=== PATIENT | female | born 1940 | race Caucasian/White ===

== ENCOUNTER 2018-04-11 01:21 | Emergency (ER) | payer MEDICARE, BC, SELFPAY ==
[2018-04-11 01:22] VITALS: BP 145/90; PULSE 115; RESP 20; TEMP 36.3; O2SAT 89; BMI 24.5
--- NOTE | 2018-04-11 01:47 | RAD_ITS ---
STUDY: X-RAY CHEST REASON FOR EXAM: Female, 77 years old. Hemoptysis with nosebleed. TECHNIQUE: Single AP portable view of the chest. COMPARISON: Prior comparison studies are not available for review at this time. FINDINGS: Cardiac monitoring leads are present. The lungs are hyperexpanded. Increased lucency in the upper lobes may be the result of COPD. There is interstitial thickening present in both lungs. There is pleural fibrotic thickening of the pulmonary lung apices. There is borderline cardiomegaly. There appears to be a large hiatal hernia within the middle mediastinum. Normal visualized pulmonary arteries. There is atherosclerotic calcification of the aortic arch with tortuosity. There is demineralization of the osseous structures. Normal visualized ribs, clavicles, and shoulders. There is no demonstrated abnormality of the visualized soft tissue structures of the upper abdomen. RAD/Chest 1 View (Portable) IMPRESSION: 1. Bilateral interstitial thickening could be acute or chronic. Differential considerations include sequela of viral infection, atypical mycobacterial infection or mycoplasma pneumonitis. 2. Hiatal hernia. Electronically Signed: Pattie Bashir MD at 2:51 EDT , Service support ,
--- NOTE | 2018-04-11 01:54 | ED.DCSUM_ITS ---
- ER Visit Summary Date of Service: 04/11/18 Chief Complaint: Bilateral nosebleed right greater than left History of Present Illness: The patient is a 77 F 3 of COPD, pulmonary hypertension on 8 L nasal cannula O2 at home. She denies being on any type of blood thinner other than a baby aspirin a day. She was at home about 2 hours ago around 12:30 AM she coughed up a small amount of blood and had nosebleed first on the right than the left. Denies any trauma. She typically does not get nosebleeds. She denies any chest pain. No worsening of her chronic shortness of breath. No DVT or PE history. Physical Examination: Older female bleeding from both nares much worse from the right. Some clots but mainly thin blood. Also blood in her posterior pharynx. Neck nontender. Lungs coarse breath sounds but currently no rales or rhonchi. Heart tachycardic 115 no murmur. Chest wall nontender. Abdomen soft nontender. She is moving all 4 extremities. No edema. Calves nontender. No cords. Neurologically she is awake and alert moving all 4 extremities. No focal motor deficits. Test Results: CBC is unremarkable with a hemoglobin of 13 and a platelet count of 347. Chemistries are unremarkable with a normal gap and creatinine. INR is normal at 1.1. A chest x-ray was obtained and there is no signs of acute pulmonary hemorrhage. She does have chronic changes consistent with her COPD. Also a hiatal hernia. Emergency Department Course and Treatment: Patient is obvious anterior nosebleed on the right. Blood in the naris on the left. We had her blow her nose to remove the clots. Afrin-soaked cotton balls were placed in both sides of her nose. The right one was removed when it was soaked with blood and the second was placed and the bleeding is starting to slow down. Multiple Duane-Synephrine soaked cotton balls were interchanged in both nares. The bleeding was significantly slowed down. An anterior nasal tampon was placed in the left which is doing well. An anterior nasal pack is been placed in the right. Along with [place] solution. Currently the bleeding is much slower and she is doing much better. Treatment Plan: Patient has been watched in the ER overnight. 05 20 her bleeding is completely resolved she has been resting comfortably. She has bilateral anterior nasal packs in. In the morning I will speak to the on-call ENT physician and have her seen in our office. Disposition: Discharge the ENT office in the morning for formal evaluation and definitive treatment. Due to her having bilateral anterior packs in she will be placed on amoxicillin 3 times daily for 3 days. Impression: Acute anterior nosebleed bilateral nares. Bilateral anterior nasal packs by ER History of pulmonary hypertension and COPD on 8 L of oxygen at home. This note was generated with [employer] dictation software. It may contain incorrect words, spelling, and punctuation that were not noted in review of the chart prior to signing ED Disposition - Plan for ED Patient: Chief Complaint: Nosebleed Referrals: Bakari Bender MD [STAFF PHYSICIAN] -
[2018-04-11 02:04] LABS: Hematocrit 40.5 % (37-47); Mean Corp Hgb Conc 32.1 g/gl (32-36); Mean Corpuscular Hgb 28.9 pg (27.0-32.0); Mean Platelet Vol. 10.7 fl (6.2-12.0); Platelet Count 347 K/mm3 (150-450); RBC Distribution Width CV 15.6 % (11.6-14.6); RBC Distribution Width SD 51.2 fl (35.1-43.9)
[2018-04-11] MEDS: Oxymetazoline 0.05% 1 SPRAY SPRAY.BTL 2 SPRAY NASAL (02:10)
[2018-04-11 02:14] LABS: Scan Indicated on CBC? Y/N NO
[2018-04-11 02:18] LABS: Anion Gap 9 (5-15); BUN 12 mg/dL (7-18); BUN/Creat Ratio 12.7 RATIO (10-20); Calcium,Total 9.4 mg/dL (8.5-10.1); Chloride 105 mmol/L (98-107); Creatinine, Serum 0.95 mg/dL (0.55-1.02); EST Glomerular Filtration Rate 61 mL/min (>60); Est Glom Filt Rate - Afr Amer 74 mL/min (>60); Glucose 111 mg/dL (74-106); Potassium 3.6 mmol/L (3.5-5.1); Sodium Level 141 mmol/L (136-145)
[2018-04-11] MEDS: Mixture 30 ML Bottle TOPICAL (02:20)
[2018-04-11 02:21] LABS: International Normalized Ratio 1.1; Prothrombin Time (Protime)PT. 14.2 SECONDS (11.7-14.9)
[2018-04-11 03:21] VITALS: BP 126/74; PULSE 118; RESP 24; O2SAT 98
[2018-04-11 04:39] VITALS: BP 102/66; PULSE 115; RESP 19; O2SAT 92
--- NOTE | 2018-04-11 04:45 | ED.RN ---
LARGE HALF DOLLAR SIZE BLOOD CLOT REMOVED FROM THE BACK OF THE PT MOUTH
--- NOTE | 2018-04-11 05:23 | ED.DEP ---
ED Disposition - Plan for ED Patient: Disposition: Home or Assisted Living Chief Complaint: Nosebleed Instructions: Nosebleed Prescriptions: Amoxicillin 250 mg PO TID #9 cap Referrals: Peng Crespo MD [STAFF PHYSICIAN] - As soon as possible Additional Instructions: Hold aspirin until nasal packs are removed. I would discuss with your primary care physician if you need to be on aspirin at all. The aspirin along with your home oxygen therapy will greatly increase her risk of recurrent nosebleeds. Nasal packing should be removed in 3 days. Amoxicillin 1 pill 3 times a day for 3 days. If recurrent nosebleed at home hold direct pressure if unable to stop return to the ER.
[2018-04-11 06:03] VITALS: BP 91/59; PULSE 114; RESP 25; O2SAT 97
[2018-04-11 07:54] VITALS: BP 99/63; PULSE 105; RESP 24; O2SAT 97
== END 2018-04-11 07:55 | disposition home or self-care (01) ==
PROVIDERS: Emergency Provider Emergency Medicine; Family Provider Internal Medicine; PCP Internal Medicine
DX: R04.0 Epistaxis (principal); I27.20 Pulmonary hypertension, unspecified; J44.9 Chronic obstructive pulmonary disease, unspecified; K44.9 Diaphragmatic hernia without obstruction or gangrene; Z99.81 Dependence on supplemental oxygen; Z85.3 Personal history of malignant neoplasm of breast
CPT/HCPCS: 71045; 80048; 85027; 85610; 99284; A4216

== ENCOUNTER 2018-05-17 03:40 | Inpatient (IN) | payer MEDICARE, BC, SELFPAY ==
[2018-05-17] VITALS (23 sets, daily range): BP systolic 53–165; BP diastolic 21–91; PULSE 87–122; RESP 13–33; TEMP 36.2–36.8; O2SAT 86–100; BMI 23.3; BMI 23.1; BMI 61.3
--- NOTE | 2018-05-17 04:03 | ED.RN ---
RN CALLED FOR EKG, PULLED OLD EKG'S FOR
--- NOTE | 2018-05-17 04:04 | RAD_ITS ---
STUDY: X-RAY CHEST REASON FOR EXAM: Female, 77 years old. Shortness of breath TECHNIQUE: Single frontal view of the chest. COMPARISON: April 11, 2018. FINDINGS: EKG leads artifacts. O2 apparatus artifact. There is hyperinflation of the lungs consistent with chronic obstructive lung disease (COPD). Again noted increased lung markings more so in the lower lungs. Pleural thickening is seen. No definitive pneumothorax or pleural effusion. There is borderline cardiomegaly. Large hiatal hernia. Normal visualized pulmonary arteries. Aortic calcifications. There are diffuse degenerative changes of the visualized thoracic spine. Normal visualized ribs, clavicles, and shoulders. There is no demonstrated abnormality of the visualized soft tissue structures of the upper abdomen. RAD/Chest 1 View (Portable) IMPRESSION: Interstitial increased markings are again noted. Compared to prior study no significant interval change. This could be acute versus chronic. Acute infectious process cannot be totally excluded. Correlation is recommended. Hiatal hernia. Electronically Signed: Chalo Zheng, at 4:43 EDT Tel , Service support ,
--- NOTE | 2018-05-17 04:06 | CT_ITS ---
STUDY: CT ABDOMEN AND PELVIS WITH CONTRAST REASON FOR EXAM: Female, 77 years old. Abdominal pain RADIATION DOSAGE (If Supplied By Facility): CTDIvol = ( 19.63 ) mGy, DLP = ( 824.57 ) mGycm TECHNIQUE: Transaxial images were obtained from the dome of the diaphragm to the symphysis pubis with oral contrast. 100ML ml of Isovue 300 contrast was administered. Sagittal and coronal images were reconstructed. Individualized dose optimization techniques were used for this CT. COMPARISON: None. FINDINGS: Extensive emphysematous changes are present. 6 mm lingular nodule. Pleural-based thickening is present. 8 mm left lower lobe pleural-based nodularity. Chronic fibrosis. Small bilateral pleural effusions. Subcentimeter short axis hilar lymph nodes. Partial visualization 1.5 cm short axis subcarinal lymph node. Small pericardial effusion. Right atrial enlargement. Surgical clips within the right breast. There is decreased attenuation of the liver consistent with steatosis. Multiple low-attenuation structures are noted within the liver. Largest measures 2.8 cm appears septated. Normal gallbladder and extrahepatic biliary system. Normal spleen. Normal pancreas. Normal bilateral adrenal glands. Normal right kidney. Normal left kidney. There is a large hiatal hernia composed mostly of the fundus of the stomach. Gastric wall thickening. Small bowel dilatation. There are multiple colonic diverticula consistent with diverticulosis. The appendix is visualized and appears normal. There is diffuse atherosclerotic calcification of the abdominal aorta, without a demonstrated aneurysm. Normal inferior vena cava. Normal retroperitoneum. Normal urinary bladder. Small amount of fluid within the pelvis. There is a small umbilical hernia containing fat. There are diffuse degenerative changes of the visualized lumbar spine. CT/Abdomen/Pelvis W IV Cont ONLY IMPRESSION: Dilated small bowel with distal decompression concerning for small bowel obstruction. The oral contrast does not appear to pass through at time of examination. Recommend follow-up KUB to ensure passage of oral contrast. Hepatic steatosis. Multiple low-attenuation structures within the liver. Incompletely characterized on this single phase study. Could represent cysts and/or hemangiomas. Further evaluation could be made with ultrasound. Small pericardial effusion. Large hiatal hernia. Gastric wall thickening. Correlate for gastritis, ulcer or mass. Small bilateral pleural effusions. Partial visualization of pulmonary nodules and subcarinal enlarged lymph node. Recommend dedicated CT scan of the chest to further evaluate on a nonemergent basis. Right atrial enlargement. Small amount of nonspecific fluid within the pelvis. Electronically Signed: Chalo Zheng, at 6:10 EDT Tel , Service support ,
--- NOTE | 2018-05-17 04:08 | ED.DCSUM_ITS ---
- ER Visit Summary Date of Service: 05/17/18 Chief Complaint: Shortness of breath, abdominal pain History of Present Illness: The patient is a 77 F presenting with abdominal pain which started yesterday afternoon. She states she has had left lower quadrant abdominal pain associated with nausea. She denies vomiting or diarrhea. She is complains of increasing shortness of breath which started around midnight. She has had a productive cough. She denies fever. Denies chest pain. She has a history of pulmonary hypertension, pulmonary fibrosis, emphysema. She is on home O2 8 L. Physical Examination: Vitals are stable. Patient is afebrile. Alert no acute distress. HEENT exam is unremarkable. Neck is supple. Lungs are expiratory wheezing bilaterally. Heart is regular rate and rhythm. Abdomen is soft left lower quadrant tenderness with no rebound or guarding Extremities are unremarkable. Skin is warm and dry. No focal neurologic deficit. Remainder of exam is unremarkable. Emergency Department Course and Treatment: Patient was given albuterol, Atrovent. EKG is sinus tachycardia rate of 112 with inferior T-wave inversions , similar to previous. CBC shows white count 12.7. Chemistries show glucose 150, creatinine 1.10. Troponin is negative. Lactic acid is 2.3. Patient was given Zofran IV. Chest x-ray shows interstitial increased markings again noted. Compared to prior study no significant interval change. CT abdomen pelvis shows dilated small bowel with distal decompression concerning for small bowel obstruction. Patient is feeling improved on reevaluation. She has had no vomiting in the emergency department. Discussed with the hospitalist for admission. Disposition: Admission Impression: Small bowel obstruction, pulmonary fibrosis This note was generated with [employer] dictation software. It may contain incorrect words, spelling, and punctuation that were not noted in review of the chart prior to signing ED Disposition - Plan for ED Patient: Chief Complaint: Shortness of Breath Referrals: Thomas Baumann MD [Primary Care Provider] -
[2018-05-17 04:14] LABS: Absolute Lymphocyte Count 1.04 X10^3/ul (0.83-4.51); Absolute Neutrophil Count 10.9 X10^3/uL (2.0-7.7); Basophil% 0.8 % (0-1); Eosinophil# 0.26 X10^3/uL; Hematocrit 42.1 % (37-47); Hemoglobin 13.2 g/dl (12.0-15.0); Lymphocyte # 1.04 X10^3/ul (4.0); Lymphocyte % 8.2 % (19-41); Mean Corp Hgb Conc 31.4 g/gl (32-36); Mean Corpuscular Hgb 27.8 pg (27.0-32.0); Mean Corpuscular Volume 88.8 fL (81-99); Mean Platelet Vol. 11.3 fl (6.2-12.0); Monocyte# 0.44 X10^3/uL; Monocyte% 3.5 % (0-10); Neutrophil # 10.87 X10^3/uL (2.7-7.7); Neutrophil % 85.3 % (47-70); POSITIVE COUNT NO; POSITIVE DIFFERENTIAL NO; POSITIVE MORPHOLOGY NO; Platelet Count 413 K/mm3 (150-450); RBC Distribution Width CV 15.4 % (11.6-14.6); RBC Distribution Width SD 49.8 fl (35.1-43.9); Red Blood Count 4.74 M/mm3 (4.2-5.4); White Blood Count 12.7 K/mm3 (4.4-11.0)
[2018-05-17] MEDS: Albuterol 2.5 MG/3 ML VIAL.NEB. INHALATION ×3 (04:25)
[2018-05-17] MEDS: Ipratropium/Albuterol Sulfate 3 ML AMPUL.NEB INHALATION (04:25)
[2018-05-17 04:29] LABS: ALB/GLOB Ratio 0.9 RATIO (0.9-2.4); AST(SGOT) 29 U/L (15-37); Alanine Aminotransfer ALT/SGPT 35 U/L (13-56); Albumin, Serum 3.6 g/dL (3.2-5.0); Alkaline Phosphatase 103 U/L (45-117); Anion Gap 12 (5-15); BUN 10 mg/dL (7-18); BUN/Creat Ratio 9.1 RATIO (10-20); Chloride 104 mmol/L (98-107); EST Glomerular Filtration Rate 51 mL/min (>60); Est Glom Filt Rate - Afr Amer 62 mL/min (>60); Estimated Creatinine Clearance 37.57 ml/min; Globulin 4.1 g/dL (2.2-4.2); Glucose 150 mg/dL (74-106); Lipase 99 U/L (73-393); Potassium 3.7 mmol/L (3.5-5.1); Protein, Total 7.7 g/dL (6.4-8.2); Sodium Level 141 mmol/L (136-145)
[2018-05-17 04:35] LABS: Lactic Acid 2.3 mmol/L (0.4-2.0)
[2018-05-17] MEDS: Ondansetron 4 MG/2 ML Vial IV ×2 (04:41→09:48)
--- NOTE | 2018-05-17 04:43 | ED.RN ---
lab resulted lactic acid 2.3, physician notified
--- NOTE | 2018-05-17 07:20 | ED.RN ---
PT BP REMAINS LOW. FLUID BOLUS UP AND INFUSING. PT STATES HER BP DOES THIS. PT ALERT. NO S/S
[2018-05-17 08:12] LABS: Reflex Lactate? Y
[2018-05-17] MEDS: 0.9% Normal Saline 1,000 ML 150 ML IV (08:30)
[2018-05-17] MEDS: 0.9% Normal Saline 1,000 ML 999 ML IV (08:30)
--- NOTE | 2018-05-17 09:39 | PCM.HP.STD ---
Problem List (1) Abdominal pain Status: Acute History of Present Illness Date of Admission: 05/17/18 Chief Complaint: abdominal pain The patient is a 77 year old F with past medical history of chronic hypoxic respiratory failure due to interstitial lung disease and COPD and history of breast cancer. She is admitted by the ED on 05/17/2018 with a complaint of abdominal pain of one day duration. Abdominal pain was initially in the left lower quadrant and became generalized. She had associated nausea and vomiting. She was passing gas and also had a soft bowel movement overnight. She described pain as cramping with no aggravating or relieving factors. She had no assisted fever but admitted to chills, she denied any cough or chest pain, any shortness of breath. Review of systems otherwise negative. Temperature was 97.2 Fahrenheit, ID of 100, RR Of 18 and saturation of 97% on 8 L of oxygen which is her baseline. Labs done showed sodium of 141, potassium 3.7, creatinine of 1.1 and lactic acid was elevated at 5. Liver function tests were pretty much unremarkable. CBC was significant for white cell count of 12.7. Chest x-ray showed increased interstitial markings per ED note and CT abdomen and pelvis. He now showed dilated small bowel with distal decompression concerning for small bowel obstruction. Patient is being admitted to be managed for small bowel obstruction and lactic acidosis as well as hypotension likely due to dehydration. [] Past Medical History Allergies aspirin [ASA] Allergy (Verified 04/11/18 01:25) Unknown Sulfa (Sulfonamide Antibiotics) Allergy (Verified 04/11/18 01:25) Unknown Home Medications: Ambulatory Orders Medication Instructions Recorded Folic Acid 1 mg PO DAILY@0800 10/29/14 Pantoprazole Sodium [Protonix] 40 mg PO DAILY 10/29/14 Sertraline HCl [Zoloft] 50 mg PO DAILY 10/29/14 Simvastatin [Zocor] 20 mg PO QHS 10/29/14 Treprostinil/Nebulizer/Accesor 1.74 mg IH Q4H 04/11/18 [Tyvaso Inhalation Starter Kit] Aspirin [Aspirin, Baby] 81 mg PO DAILY@0800 05/17/18 Hydroxyzine HCl 25 mg PO Q8H PRN PRN 05/17/18 Levothyroxine Sodium [Synthroid] 50 mcg PO SUTUWETHFRSA 05/17/18 Levothyroxine [Synthroid] 100 mcg PO MO 05/17/18 Metoprolol Succinate 12.5 mg PO DAILY 05/17/18 Multivit-Min/FA/Lycopen/Lutein 1 each PO DAILY 05/17/18 [Centrum Silver Tablet] Tiotropium [place] [Spiriva] 18 mcg IH DAILY 05/17/18 Surgical History: - - right breast surgery, hysterectomy, tonsillectomy Psychiatric History: No pertinent psych hx Lives: With Family Smoking Status: Former smoker Alcohol: Occasional Drugs: None - *Family History Maternal History Items: Heart Disease, Hypertension Review of Systems Constitutional: Reports: Chills, Malaise. Denies: Anorexia, Fever, Weakness Eyes: Denies: Blurred vision HEENT: Denies: Head Aches, Sinus Congestion, Sinus Drainage Cardiovascular: Denies: Chest Pain, Chest Pressure, Edema, Heaviness, Light Headedness, Palpitations Respiratory: Denies: Cough, Shortness of Breath, Shortness of breath upon exertion, Sputum production, Wheezing Gastrointestinal: Reports: Abdominal Pain, Nausea, Vomiting. Denies: Diarrhea Genitourinary: Denies: Dysuria Gynecological: Denies: Breast symptoms Musculoskeletal: Denies: Joint Pain, Joint Tenderness Skin: Denies: Rash, Wounds Neurological: Denies: Numbness, Tingling, Focal weakness VTE Information - Inpt Only VTE Present on Admission: No VTE Mechan Device Prophylaxis: None VTE Pharm Prophylaxis ordered?: Yes - Physical Exam General: Alert, Oriented x3, Cooperative, No apparent distress HEENT: Atraumatic, PERRLA, EOMI, Normocephalic Oral: Dry Mucosa Neck: Supple, No JVD, Negative Carotid Bruits Lungs: - - Has coarse crackles in mid and lower lung muniz bilaterally. On 8 L of oxygen at time of review with saturation being in the high 80s-90s. Cardiovascular: Regular rate, Regular Rhythm, Normal S1, Normal S2, No murmurs Abdomen: Bowel Sounds Present, Soft, Non Tender, Non-Distended, No Hepato-splenomegaly Extremities: No clubbing, No cyanosis, No edema, Capillary Refill Less than 3 Seconds Skin: No rashes, No breakdown Musculoskeletal: No Tenderness to Palpation of Joints or Extremities Lymphatic: No Cervical, Supraclavicular, or Inguinal Adenopathy Neurological: Cranial nerves II-XII grossly intact Psych/Mental Status: Normal Affect, Appropriate, Alert and oriented to time, place, person, mood and affect Vital Signs Temp Pulse Resp BP Pulse Ox 97.2 F L 100 18 80/57 L 97 05/17/18 03:41 05/17/18 08:10 05/17/18 08:10 05/17/18 08:10 05/17/18 08:10 Oxygen Delivery Method Room Air Laboratory Tests Past 24 Hrs 05/17/18 08:50 Lactic Acid 5.0 H* Laboratory Tests 05/17/18 05/17/18 05/17/18 Range/Units 08:50 03:55 03:55 WBC (4.4-11.0) K/mm3 RBC (4.2-5.4) M/mm3 Hgb (12.0-15.0) g/dl Hct (37-47) % MCV (81-99) fL MCH (27.0-32.0) pg MCHC (32-36) g/gl RDW (11.6-14.6) % RDW Differential (35.1-43.9) fl Plt Count (150-450) K/mm3 MPV (6.2-12.0) fl Immature Gran % (Auto) (0.0-0.9) % Neut % (Auto) (47-70) % Lymph % (Auto) (19-41) % Gonzales % (Auto) (0-10) % Eos % (Auto) (0-5) % Baso % (Auto) (0-1) % Absolute Neuts (auto) (2.0-7.7) X10^3/uL Absolute Lymphs (auto) (0.83-4.51) X10^3/ul Total Counted Sodium 141 (136-145) mmol/L Potassium 3.7 (3.5-5.1) mmol/L Chloride 104 (98-107) mmol/L Carbon Dioxide 25.0 (21.0-32.0) mmol/L Anion Gap 12 (5-15) BUN 10 (7-18) mg/dL Creatinine 1.10 H (0.55-1.02) mg/dL Estim Creat Clear Calc 37.57 ml/min Est GFR (MDRD) Af Amer 62 (>60) mL/min Est GFR (MDRD) Non-Af 51 L (>60) mL/min BUN/Creatinine Ratio 9.1 L (10-20) RATIO Glucose 150 H (74-106) mg/dL Lactic Acid 5.0 H* 2.3 H (0.4-2.0) mmol/L Calcium 9.0 (8.5-10.1) mg/dL Total Bilirubin 0.70 (0.20-1.00) mg/dL AST 29 (15-37) U/L ALT 35 (13-56) U/L Alkaline Phosphatase 103 (45-117) U/L Troponin I < 0.015 (<0.045) ng/mL Total Protein 7.7 (6.4-8.2) g/dL Albumin 3.6 (3.2-5.0) g/dL Globulin 4.1 (2.2-4.2) g/dL Albumin/Globulin Ratio 0.9 (0.9-2.4) RATIO Lipase 99 (73-393) U/L 05/17/18 Range/Units 03:55 WBC 12.7 H (4.4-11.0) K/mm3 RBC 4.74 (4.2-5.4) M/mm3 Hgb 13.2 (12.0-15.0) g/dl Hct 42.1 (37-47) % MCV 88.8 (81-99) fL MCH 27.8 (27.0-32.0) pg MCHC 31.4 L (32-36) g/gl RDW 15.4 H (11.6-14.6) % RDW Differential 49.8 H (35.1-43.9) fl Plt Count 413 (150-450) K/mm3 MPV 11.3 (6.2-12.0) fl Immature Gran % (Auto) 0.200 (0.0-0.9) % Neut % (Auto) 85.3 H (47-70) % Lymph % (Auto) 8.2 L (19-41) % Gonzales % (Auto) 3.5 (0-10) % Eos % (Auto) 2.0 (0-5) % Baso % (Auto) 0.8 (0-1) % Absolute Neuts (auto) 10.9 H (2.0-7.7) X10^3/uL Absolute Lymphs (auto) 1.04 (0.83-4.51) X10^3/ul Total Counted Not Reportable Sodium (136-145) mmol/L Potassium (3.5-5.1) mmol/L Chloride (98-107) mmol/L Carbon Dioxide (21.0-32.0) mmol/L Anion Gap (5-15) BUN (7-18) mg/dL Creatinine (0.55-1.02) mg/dL Estim Creat Clear Calc ml/min Est GFR (MDRD) Af Amer (>60) mL/min Est GFR (MDRD) Non-Af (>60) mL/min BUN/Creatinine Ratio (10-20) RATIO Glucose (74-106) mg/dL Lactic Acid (0.4-2.0) mmol/L Calcium (8.5-10.1) mg/dL Total Bilirubin (0.20-1.00) mg/dL AST (15-37) U/L ALT (13-56) U/L Alkaline Phosphatase (45-117) U/L Troponin I (<0.045) ng/mL Total Protein (6.4-8.2) g/dL Albumin (3.2-5.0) g/dL Globulin (2.2-4.2) g/dL Albumin/Globulin Ratio (0.9-2.4) RATIO Lipase (73-393) U/L Assessment/Plan All Active Problems Abdominal pain (Acute) Small bowel obstruction (Acute) Pulmonary hypertension (Acute) Hypothyroidism (Acute) GERD (gastroesophageal reflux disease) (Acute) Depression (Acute) COPD (chronic obstructive pulmonary disease) (Acute) 77 y/o female with a PMH of chronic hypoxic respiratory failure due to COPD, presenting with a complaint of abdominal pain of one day duration 1. Small bowel obstruction Admitted with a one-day history of abdominal pain, nausea vomiting. Symptoms had resolved at time of review. Labs done showed lactic acid elevated at 5. There is however no gap and bicarb is 25. Awaiting official reading of abdominopelvic CT. Per ED documentation, CT showed small bowel obstruction. Will admit to ICU on account of elevated lactic acid and hypotension. Give a bolus of IV fluid normal saline 1 L and continued 1 50 cc/h. Get an urgent surgical consult. Keep n.p.o. Past NG tube to decompress small bowel as patient is very likely not a surgical candidate account of severe chronic hypoxic respiratory failure discussed with Dr Cory Guerrero 2. septic shock and lactic acidosis due to and ischemic bowel BP down to 70s systolic; lactic acid is elevated at 5, likely as a result of hypoperfusion from ischemic bowel will resuscitated with IVF NS 1L bolus and continue at 150cc/hr will trend lactic acid critical care consult 3. Hypertension: on metoprolol. Will hold o/a of hypotension 4. Chronic hypoxic respiratory failure due to interstitial lung disease . Continue to maintain saturation greater than 88-90%. 5. Chronic pulmonary fibrosis follows up at [facility] on Treprostinil nebuliser, which is an experimental drug will bring meds from home, so it will be continued here 6. Hypothryoidism: on synthroid DVT prophylaxis: lovenox GI prophylaxis: PPI CODE STATUS: Full code-DO NOT INTUBATE Patient, and son counseled extensively about different types of CODE STATUS namely full code, DNR CCA and DNR CC. Patient refuses intubation if needed. She had been told at [facility] that she would not be able to get of the ventilator if she ended up being intubated. Patient is otherwise full code. is POA 12:00pm A CODE BLUE was called today on account of patient becoming unresponsive and turning blue when NG tube was being attempted. In the interim, patient had been seen by air export operations agent and general surgeon. Consent had been for ischemic bowel on account of worsening lactic acidosis and patient also complaining to them of some dark stools today. Decision had been made for emergent surgery. Patient's pulmonary hypertension specialist had been called at her request at [facility] because of concerns about intubation with his severe pulmonary hypertension and pulmonary fibrosis. Decision had been made for emergent surgery and for transfer up to [facility] if needed if her medications arose after surgery. Patient had a central line successfully placed. When NG tube was being passed, patient suddenly became blue and a CODE BLUE was called. Attempts at resuscitation were made by ACLS protocol and patient received several rounds of bicarb. She was intubated and received bagging. There was return of spontaneous circulation appears sent subsequently went into asystole again. General surgeon discuss with family about treatment options. Family decided to make care comfort care only. Patient subsequently around 2:10 PM. Code Visit Inpatient E&M: 78351 Subs Hosp L3 Procedures: 84658 Advncd Care Plan 30 Min
--- NOTE | 2018-05-17 09:45 | HP.PCM_ITS ---
Problem List (1) Abdominal pain Status: Acute History of Present Illness Date of Admission: 05/17/18 Chief Complaint: abdominal pain The patient is a 77 year old F with past medical history of chronic hypoxic respiratory failure due to interstitial lung disease and COPD and history of breast cancer. She is admitted by the ED on 05/17/2018 with a complaint of abdominal pain of one day duration. Abdominal pain was initially in the left lower quadrant and became generalized. She had associated nausea and vomiting. She was passing gas and also had a soft bowel movement overnight. She described pain as cramping with no aggravating or relieving factors. She had no assisted fever but admitted to chills, she denied any cough or chest pain, any shortness of breath. Review of systems otherwise negative. Temperature was 97.2 Fahrenheit, MT of 100, RR Of 18 and saturation of 97% on 8 L of oxygen which is her baseline. Labs done showed sodium of 141, potassium 3.7, creatinine of 1.1 and lactic acid was elevated at 5. Liver function tests were pretty much unremarkable. CBC was significant for white cell count of 12.7. Chest x-ray showed increased interstitial markings per ED note and CT abdomen and pelvis. He now showed dilated small bowel with distal decompression concerning for small bowel obstruction. Patient is being admitted to be managed for small bowel obstruction and lactic acidosis as well as hypotension likely due to dehydration. [] Past Medical History Allergies aspirin [ASA] Allergy (Verified 04/11/18 01:25) Unknown Sulfa (Sulfonamide Antibiotics) Allergy (Verified 04/11/18 01:25) Unknown Home Medications: Ambulatory Orders Medication Instructions Recorded Folic Acid 1 mg PO DAILY@0800 10/29/14 Pantoprazole Sodium [Protonix] 40 mg PO DAILY 10/29/14 Sertraline HCl [Zoloft] 50 mg PO DAILY 10/29/14 Simvastatin [Zocor] 20 mg PO QHS 10/29/14 Treprostinil/Nebulizer/Accesor 1.74 mg IH Q4H 04/11/18 [Tyvaso Inhalation Starter Kit] Aspirin [Aspirin, Baby] 81 mg PO DAILY@0800 05/17/18 Hydroxyzine HCl 25 mg PO Q8H PRN PRN 05/17/18 Levothyroxine Sodium [Synthroid] 50 mcg PO SUTUWETHFRSA 05/17/18 Levothyroxine [Synthroid] 100 mcg PO MO 05/17/18 Metoprolol Succinate 12.5 mg PO DAILY 05/17/18 Multivit-Min/FA/Lycopen/Lutein 1 each PO DAILY 05/17/18 [Centrum Silver Tablet] Tiotropium [place] [Spiriva] 18 mcg IH DAILY 05/17/18 Surgical History: - - right breast surgery, hysterectomy, tonsillectomy Psychiatric History: No pertinent psych hx Lives: With Family Smoking Status: Former smoker Alcohol: Occasional Drugs: None - *Family History Maternal History Items: Heart Disease, Hypertension Review of Systems Constitutional: Reports: Chills, Malaise. Denies: Anorexia, Fever, Weakness Eyes: Denies: Blurred vision HEENT: Denies: Head Aches, Sinus Congestion, Sinus Drainage Cardiovascular: Denies: Chest Pain, Chest Pressure, Edema, Heaviness, Light Headedness, Palpitations Respiratory: Denies: Cough, Shortness of Breath, Shortness of breath upon exertion, Sputum production, Wheezing Gastrointestinal: Reports: Abdominal Pain, Nausea, Vomiting. Denies: Diarrhea Genitourinary: Denies: Dysuria Gynecological: Denies: Breast symptoms Musculoskeletal: Denies: Joint Pain, Joint Tenderness Skin: Denies: Rash, Wounds Neurological: Denies: Numbness, Tingling, Focal weakness VTE Information - Inpt Only VTE Present on Admission: No VTE Mechan Device Prophylaxis: None VTE Pharm Prophylaxis ordered?: Yes - Physical Exam General: Alert, Oriented x3, Cooperative, No apparent distress HEENT: Atraumatic, PERRLA, EOMI, Normocephalic Oral: Dry Mucosa Neck: Supple, No JVD, Negative Carotid Bruits Lungs: - - Has coarse crackles in mid and lower lung muniz bilaterally. On 8 L of oxygen at time of review with saturation being in the high 80s-90s. Cardiovascular: Regular rate, Regular Rhythm, Normal S1, Normal S2, No murmurs Abdomen: Bowel Sounds Present, Soft, Non Tender, Non-Distended, No Hepato- splenomegaly Extremities: No clubbing, No cyanosis, No edema, Capillary Refill Less than 3 Seconds Skin: No rashes, No breakdown Musculoskeletal: No Tenderness to Palpation of Joints or Extremities Lymphatic: No Cervical, Supraclavicular, or Inguinal Adenopathy Neurological: Cranial nerves II-XII grossly intact Psych/Mental Status: Normal Affect, Appropriate, Alert and oriented to time, place, person, mood and affect Vital Signs Temp Pulse Resp BP Pulse Ox 97.2 F L 100 18 80/57 L 97 05/17/18 03:41 05/17/18 08:10 05/17/18 08:10 05/17/18 08:10 05/17/18 08:10 Oxygen Delivery Method Room Air Laboratory Tests Past 24 Hrs 05/17/18 08:50 Lactic Acid 5.0 H* Laboratory Tests 3 05/17/18 05/17/18 05/17/18 Range/Units 08:50 03:55 03:55 WBC (4.4-11.0) K/mm3 RBC (4.2-5.4) M/mm3 Hgb (12.0-15.0) g/dl Hct (37-47) % MCV (81-99) fL MCH (27.0-32.0) pg MCHC (32-36) g/gl RDW (11.6-14.6) % RDW Differential (35.1-43.9) fl Plt Count (150-450) K/mm3 MPV (6.2-12.0) fl Immature Gran % (Auto) (0.0-0.9) % Neut % (Auto) (47-70) % Lymph % (Auto) (19-41) % [place] % (Auto) (0-10) % Eos % (Auto) (0-5) % Baso % (Auto) (0-1) % Absolute Neuts (auto) (2.0-7.7) X10^3/uL Absolute Lymphs (auto) (0.83-4.51) X10^3/ul Total Counted Sodium 141 (136-145) mmol/L Potassium 3.7 (3.5-5.1) mmol/L Chloride 104 (98-107) mmol/L Carbon Dioxide 25.0 (21.0-32.0) mmol/L Anion Gap 12 (5-15) BUN 10 (7-18) mg/dL Creatinine 1.10 H (0.55-1.02) mg/dL Estim Creat Clear Calc 37.57 ml/min Est GFR (MDRD) Af Amer 62 (>60) mL/min Est GFR (MDRD) Non-Af 51 L (>60) mL/min BUN/Creatinine Ratio 9.1 L (10-20) RATIO Glucose 150 H (74-106) mg/dL Lactic Acid 5.0 H* 2.3 H (0.4-2.0) mmol/L Calcium 9.0 (8.5-10.1) mg/dL Total Bilirubin 0.70 (0.20-1.00) mg/dL AST 29 (15-37) U/L ALT 35 (13-56) U/L Alkaline Phosphatase 103 (45-117) U/L Troponin I < 0.015 (<0.045) ng/mL Total Protein 7.7 (6.4-8.2) g/dL Albumin 3.6 (3.2-5.0) g/dL Globulin 4.1 (2.2-4.2) g/dL Albumin/Globulin Ratio 0.9 (0.9-2.4) RATIO Lipase 99 (73-393) U/L 3 05/17/18 Range/Units 03:55 WBC 12.7 H (4.4-11.0) K/mm3 RBC 4.74 (4.2-5.4) M/mm3 Hgb 13.2 (12.0-15.0) g/dl Hct 42.1 (37-47) % MCV 88.8 (81-99) fL MCH 27.8 (27.0-32.0) pg MCHC 31.4 L (32-36) g/gl RDW 15.4 H (11.6-14.6) % RDW Differential 49.8 H (35.1-43.9) fl Plt Count 413 (150-450) K/mm3 MPV 11.3 (6.2-12.0) fl Immature Gran % (Auto) 0.200 (0.0-0.9) % Neut % (Auto) 85.3 H (47-70) % Lymph % (Auto) 8.2 L (19-41) % [place] % (Auto) 3.5 (0-10) % Eos % (Auto) 2.0 (0-5) % Baso % (Auto) 0.8 (0-1) % Absolute Neuts (auto) 10.9 H (2.0-7.7) X10^3/uL Absolute Lymphs (auto) 1.04 (0.83-4.51) X10^3/ul Total Counted Not Reportable Sodium (136-145) mmol/L Potassium (3.5-5.1) mmol/L Chloride (98-107) mmol/L Carbon Dioxide (21.0-32.0) mmol/L Anion Gap (5-15) BUN (7-18) mg/dL Creatinine (0.55-1.02) mg/dL Estim Creat Clear Calc ml/min Est GFR (MDRD) Af Amer (>60) mL/min Est GFR (MDRD) Non-Af (>60) mL/min BUN/Creatinine Ratio (10-20) RATIO Glucose (74-106) mg/dL Lactic Acid (0.4-2.0) mmol/L Calcium (8.5-10.1) mg/dL Total Bilirubin (0.20-1.00) mg/dL AST (15-37) U/L ALT (13-56) U/L Alkaline Phosphatase (45-117) U/L Troponin I (<0.045) ng/mL Total Protein (6.4-8.2) g/dL Albumin (3.2-5.0) g/dL Globulin (2.2-4.2) g/dL Albumin/Globulin Ratio (0.9-2.4) RATIO Lipase (73-393) U/L Assessment/Plan All Active Problems Abdominal pain (Acute) Small bowel obstruction (Acute) Pulmonary hypertension (Acute) Hypothyroidism (Acute) GERD (gastroesophageal reflux disease) (Acute) Depression (Acute) COPD (chronic obstructive pulmonary disease) (Acute) 77 y/o female with a PMH of chronic hypoxic respiratory failure due to COPD, presenting with a complaint of abdominal pain of one day duration 1. Small bowel obstruction * Admitted with a one-day history of abdominal pain, nausea vomiting. Symptoms had resolved at time of review. * Labs done showed lactic acid elevated at 5. There is however no gap and bicarb is 25. * Awaiting official reading of abdominopelvic CT. Per ED documentation, CT showed small bowel obstruction. * Will admit to ICU on account of elevated lactic acid and hypotension. Give a bolus of IV fluid normal saline 1 L and continued 1 50 cc/h. * Get an urgent surgical consult. Keep n.p.o. * Past NG tube to decompress small bowel as patient is very likely not a surgical candidate account of severe chronic hypoxic respiratory failure * discussed with Dr Cory Guerrero * 2. septic shock and lactic acidosis due to and ischemic bowel * BP down to 70s systolic; lactic acid is elevated at 5, likely as a result of hypoperfusion from ischemic bowel * will resuscitated with IVF NS 1L bolus and continue at 150cc/hr * will trend lactic acid * critical care consult * 3. Hypertension: on metoprolol. Will hold o/a of hypotension 4. Chronic hypoxic respiratory failure due to interstitial lung disease * . Continue to maintain saturation greater than 88-90%. * 5. Chronic pulmonary fibrosis * follows up at [facility] * on Treprostinil nebuliser, which is an experimental drug * will bring meds from home, so it will be continued here * 6. Hypothryoidism: on synthroid DVT prophylaxis: lovenox GI prophylaxis: PPI CODE STATUS: Full code-DO NOT INTUBATE * Patient, and son counseled extensively about different types of CODE STATUS namely full code, DNR CCA and DNR CC. Patient refuses intubation if needed. She had been told at [facility] that she would not be able to get of the ventilator if she ended up being intubated. Patient is otherwise full code. is POA * * 12:00pm A CODE BLUE was called today on account of patient becoming unresponsive and turning blue when NG tube was being attempted. In the interim, patient had been seen by continuous washer operator and general surgeon. Consent had been for ischemic bowel on account of worsening lactic acidosis and patient also complaining to them of some dark stools today. Decision had been made for emergent surgery. Patient's pulmonary hypertension specialist had been called at her request at [facility] because of concerns about intubation with his severe pulmonary hypertension and pulmonary fibrosis. Decision had been made for emergent surgery and for transfer up to [facility] if needed if her medications arose after surgery. Patient had a central line successfully placed. When NG tube was being passed, patient suddenly became blue and a CODE BLUE was called. Attempts at resuscitation were made by ACLS protocol and patient received several rounds of bicarb. She was intubated and received bagging. There was return of spontaneous circulation appears sent subsequently went into asystole again. General surgeon discuss with family about treatment options. Family decided to make care comfort care only. Patient subsequently around 2: 10 PM. Code Visit Inpatient E&M: 39421 Subs Hosp L3 Procedures: 18055 Advncd Care Plan 30 Min
--- NOTE | 2018-05-17 10:14 | PCM.CONS.GEN ---
<Cory Guerrero - Last Filed: 05/17/18 11:44> Reason for Consult History of Present Illness: The patient is a 77 year old F [] Past Medical History Allergies aspirin [ASA] Allergy (Verified 04/11/18 01:25) Unknown Sulfa (Sulfonamide Antibiotics) Allergy (Verified 04/11/18 01:25) Unknown Home Medications: Ambulatory Orders Medication Instructions Recorded Folic Acid 1 mg PO DAILY@0800 10/29/14 Pantoprazole Sodium [Protonix] 40 mg PO DAILY 10/29/14 Sertraline HCl [Zoloft] 50 mg PO DAILY 10/29/14 Simvastatin [Zocor] 20 mg PO QHS 10/29/14 Treprostinil/Nebulizer/Accesor 1.74 mg IH Q4H 04/11/18 [Tyvaso Inhalation Starter Kit] Aspirin [Aspirin, Baby] 81 mg PO DAILY@0800 05/17/18 Hydroxyzine HCl 25 mg PO Q8H PRN PRN 05/17/18 Levothyroxine Sodium [Synthroid] 50 mcg PO SUTUWETHFRSA 05/17/18 Levothyroxine [Synthroid] 100 mcg PO MO 05/17/18 Metoprolol Succinate 12.5 mg PO DAILY 05/17/18 Multivit-Min/FA/Lycopen/Lutein 1 each PO DAILY 05/17/18 [Centrum Silver Tablet] Tiotropium [place] [Spiriva] 18 mcg IH DAILY 05/17/18 - Physical Exam Vital Signs Temp Pulse Resp BP Pulse Ox 97.2 F L 100 18 80/57 L 97 05/17/18 03:41 05/17/18 08:10 05/17/18 08:10 05/17/18 08:10 05/17/18 08:10 Oxygen Delivery Method Room Air Weight: 135 lb 2.294 oz Body Mass Index (BMI) 23.1 Microbiology Past 72 Hours 05/17/18 09:30 Stool Occult Blood (CARLOS) - Final Stool Occult Blood Positive Laboratory Tests Past 24 Hrs 05/17/18 05/17/18 05/17/18 08:50 10:55 11:35 PT 16.8 H INR 1.4 APTT 33.9 Lactic Acid 5.0 H* Pending Assessment/Plan All Active Problems Abdominal pain (Acute) Small bowel obstruction (Acute) Pulmonary hypertension (Acute) Hypothyroidism (Acute) GERD (gastroesophageal reflux disease) (Acute) Depression (Acute) COPD (chronic obstructive pulmonary disease) (Acute) I have completely reviewed this patient's history and physical. I have personally reviewed her laboratory and I have personally inspected her CAT scan. I have repeated clinical examination and I have discussed her care with physician trading assistant Marilyn Chinchilla and Dr. Ja Lomeli and Dr. Fernandes and Dr Merrick Landrum. Since the patient's transfer to the intensive care unit from the emergency room she has had a melanotic stool. On my review of the CT I believe that she has a small bowel obstruction. Oral contrast does not go past the obstruction. There appears to be micro-bowel past the obstruction. The point of obstruction appears to be in the left lower quadrant pelvic area. On her clinical examination she is mildly tender to palpation in that left lower quadrant but not excessively so. Bowel sounds are present but diminished. She is grossly distended. She has had a previous abdominal hysterectomy remotely. No other abdominal surgery. She does have significant pulmonary hypertension and pulmonary disease. That has been extensively discussed with her by Dr. Lomeli. The patient and family members are aware that she will require intubation to allow for a laparoscopic approach. That laparoscopic approach may need to be converted to an open approach. The patient is aware that no findings may be present or ischemic bowel may be present. She may simply require a lysis of adhesions or she may require a bowel resection or she may require a ileostomy. She and family members have had an opportunity to ask and have questions answered. They are all aware that she represents a very high risk operative candidate unfortunately with significant risk of demise. I believe however that it is in her interest to pursue surgical intervention locally rather than allow for the delay in transfer. They concur and we will place appropriate monitoring lines central line and arterial line and proceed as indicated. Cory Guerrero M.D., F.A.C.S. <Marilyn Chinchilla - Last Filed: 05/17/18 15:30> Problem List (1) Small bowel obstruction Status: Acute (2) Abdominal pain Status: Acute Reason for Consult Date of Consultation: 05/17/18 Reason for Consultation: Abdominal pain. History of Present Illness: The patient is a 77 year old F who presents with 1 day history of worsening abdominal pain. She noted around 4:00 pm she had developed stomach pain/aches this worsened into the evening. She has been nauseous ever since. She noted the pain has also caused increased difficulty breathing. Patient has severe pulmonary hypertension with her last Mean pulmonary artery pressure at 54 [address] Patient follows with [address] Tovar at [facility]. Patient is currently on 8 Liters oxygen at home continuously. Patient noted her protective signal repairer helper has noted she should not be intubated due to her severe pulmonary hypertension. Patient denies previous cardiac history. She has had multiple cardiac caths, however she notes this is due to her lung status. Patient notes her only abdominal surgery is total hysterectomy. She denies previous small bowel obstruction. She denies recent changes in bowel habits. She denies concerns with constipation or diarrhea. She noted her bowel movements have been darker yesterday and today. Patient denies seeing fabiana blood within in her stool. Her last bowel movement was this morning approximately 10 minutes ago in the ED. Patient denies family history of colon cancer. Her last colonoscopy was in [address] Guerrero. Findings were notable for diverticulosis, redundant colon otherwise unremarkable. no specimens were obtained. Recommend repeat in 10 years. Patient notes she had a blood clot approximately 40 years ago. She is maintained on a daily 81 mg aspirin. Patient has a history of right breast cancer in 2003. She had a partial lumpectomy with sentinel lymph node biopsy by Dr. Guerrero. Dr. Guerrero has also performed a completion thyroidectomy in 2011. Patient has a previous history of cigarette smoking for approximately 30 years. She quit smoking in . Patient notes her abdominal discomfort has slightly improved. She notes this discomfort is an ache. Labs: WBC 12.1, Hbg 13.2, Hct 42.1, plt 413. Creat. 1.1. Lactic acid 2.3 ---> 5.0. CT scan of ab/pel demonstrates a small bowel obstruction. CT scan with no official reading yet. Past Medical History Allergies aspirin [ASA] Allergy (Verified 04/11/18 01:25) Unknown Sulfa (Sulfonamide Antibiotics) Allergy (Verified 04/11/18 01:25) Unknown Surgical History: - - right breast surgery, hysterectomy, tonsillectomy, thyroidectomy, blepharoplasty, multiple cardiac caths Psychiatric History: No pertinent psych hx Lives: With Family Smoking Status: Former smoker Alcohol: Occasional Drugs: None - *Family History Maternal History Items: Heart Disease, Hypertension Review of Systems Constitutional: Reports: Anorexia HEENT: Denies: Head Aches, Sinus Congestion, Sinus Drainage Cardiovascular: Reports: Chest Pressure Respiratory: Reports: Shortness of Breath, Shortness of breath at rest Gastrointestinal: Reports: Abdominal Pain, Nausea, Melena Genitourinary: Denies: Dysuria Musculoskeletal: Denies: Joint Pain, Joint Tenderness Skin: Denies: Rash, Wounds Neurological: Denies: Numbness, Tingling, Focal weakness Psychiatric: Reports: Anxiety Hematologic/ Lymphatic: Reports: Easy Bruising, Hx of blood clot - Physical Exam General: Alert, Oriented x3, Cooperative HEENT: Atraumatic, PERRLA, EOMI, Normocephalic Neck: Supple, No JVD, Negative Carotid Bruits Lungs: Clear to auscultation, Short of Breath, Using Accessory Muscles Cardiovascular: Regular Rhythm, Tachycardic Abdomen: Hypoactive Bowel Sounds, Distended, Guarding, Tender - generalized Extremities: No edema, Capillary Refill Less than 3 Seconds Skin: No rashes, No breakdown Musculoskeletal: No Tenderness to Palpation of Joints or Extremities Neurological: Neuro grossly intact Psych/Mental Status: Appropriate, Anxious Vital Signs Temp Pulse Resp BP Pulse Ox 97.2 F L 100 18 80/57 L 97 05/17/18 03:41 05/17/18 08:10 05/17/18 08:10 05/17/18 08:10 05/17/18 08:10 Oxygen Delivery Method Room Air Laboratory Tests Past 24 Hrs 05/17/18 08:50 Lactic Acid 5.0 H* Assessment/Plan I have been consulted in conjunction with Dr. Guerrero Impression: Abdominal pain. Small bowel obstruction. Probable ischemic bowel. Plan: Discussed patient with Dr. Guerrero. Dr. Guerrero will plan to perform emergent laparoscopy. Patient is very hesitant to undergo general anesthesia, as she was told by her protective signal repairer helper that her lungs would not tolerate this type of anesthesia. Patient notes she has a large hiatal hernia, which she is not able to have surgery for due to her lung status per the patient. Dr. Lomeli was consulted. Patient has requested Dr. Lomeli speak with her protective signal repairer helper to discuss this procedure. It has been discussed with the patient and her son and the urgency in proceeding with this procedure. We will wait to proceed until we discuss with her protective signal repairer helper. Patient will either proceed with surgery or be transferred to tertiary facility. Patient is a high risk operative candidate due to her pulmonary status. Thank you for allowing us to participate in this patient's care. Code Visit Office Visits / Consults: 25016 IP Consult L4
--- NOTE | 2018-05-17 10:19 | CON.PCM_ITS ---
<Cory Guerrero - Last Filed: 05/17/18 11:44> Reason for Consult History of Present Illness: The patient is a 77 year old F [] Past Medical History Allergies aspirin [ASA] Allergy (Verified 04/11/18 01:25) Unknown Sulfa (Sulfonamide Antibiotics) Allergy (Verified 04/11/18 01:25) Unknown Home Medications: Ambulatory Orders Medication Instructions Recorded Folic Acid 1 mg PO DAILY@0800 10/29/14 Pantoprazole Sodium [Protonix] 40 mg PO DAILY 10/29/14 Sertraline HCl [Zoloft] 50 mg PO DAILY 10/29/14 Simvastatin [Zocor] 20 mg PO QHS 10/29/14 Treprostinil/Nebulizer/Accesor 1.74 mg IH Q4H 04/11/18 [Tyvaso Inhalation Starter Kit] Aspirin [Aspirin, Baby] 81 mg PO DAILY@0800 05/17/18 Hydroxyzine HCl 25 mg PO Q8H PRN PRN 05/17/18 Levothyroxine Sodium [Synthroid] 50 mcg PO SUTUWETHFRSA 05/17/18 Levothyroxine [Synthroid] 100 mcg PO MO 05/17/18 Metoprolol Succinate 12.5 mg PO DAILY 05/17/18 Multivit-Min/FA/Lycopen/Lutein 1 each PO DAILY 05/17/18 [Centrum Silver Tablet] Tiotropium [place] [Spiriva] 18 mcg IH DAILY 05/17/18 - Physical Exam Vital Signs Temp Pulse Resp BP Pulse Ox 97.2 F L 100 18 80/57 L 97 05/17/18 03:41 05/17/18 08:10 05/17/18 08:10 05/17/18 08:10 05/17/18 08:10 Oxygen Delivery Method Room Air Weight: 135 lb 2.294 oz Body Mass Index (BMI) 23.1 Microbiology Past 72 Hours 05/17/18 09:30 Stool Occult Blood (CARLOS) - Final Stool Occult Blood Positive Laboratory Tests Past 24 Hrs 05/17/18 05/17/18 05/17/18 08:50 10:55 11:35 PT 16.8 H INR 1.4 APTT 33.9 Lactic Acid 5.0 H* Pending Assessment/Plan All Active Problems Abdominal pain (Acute) Small bowel obstruction (Acute) Pulmonary hypertension (Acute) Hypothyroidism (Acute) GERD (gastroesophageal reflux disease) (Acute) Depression (Acute) COPD (chronic obstructive pulmonary disease) (Acute) I have completely reviewed this patient's history and physical. I have personally reviewed her laboratory and I have personally inspected her CAT scan. I have repeated clinical examination and I have discussed her care with physician senior care assistant Marilyn Chinchilla and Dr. Ja Lomeli and Dr. Fernandes and Dr Merrick Landrum. Since the patient's transfer to the intensive care unit from the emergency room she has had a melanotic stool. On my review of the CT I believe that she has a small bowel obstruction. Oral contrast does not go past the obstruction. There appears to be micro-bowel past the obstruction. The point of obstruction appears to be in the left lower quadrant pelvic area. On her clinical examination she is mildly tender to palpation in that left lower quadrant but not excessively so. Bowel sounds are present but diminished. She is grossly distended. She has had a previous abdominal hysterectomy remotely. No other abdominal surgery. She does have significant pulmonary hypertension and pulmonary disease. That has been extensively discussed with her by Dr. Lomeli. The patient and family members are aware that she will require intubation to allow for a laparoscopic approach. That laparoscopic approach may need to be converted to an open approach. The patient is aware that no findings may be present or ischemic bowel may be present. She may simply require a lysis of adhesions or she may require a bowel resection or she may require a ileostomy. She and family members have had an opportunity to ask and have questions answered. They are all aware that she represents a very high risk operative candidate unfortunately with significant risk of demise. I believe however that it is in her interest to pursue surgical intervention locally rather than allow for the delay in transfer. They concur and we will place appropriate monitoring lines central line and arterial line and proceed as indicated. Cory Guerrero M.D., F.A.C.S. <Marilyn Chinchilla - Last Filed: 05/17/18 15:30> Problem List (1) Small bowel obstruction Status: Acute (2) Abdominal pain Status: Acute Reason for Consult Date of Consultation: 05/17/18 Reason for Consultation: Abdominal pain. History of Present Illness: The patient is a 77 year old F who presents with 1 day history of worsening abdominal pain. She noted around 4:00 pm she had developed stomach pain/aches this worsened into the evening. She has been nauseous ever since. She noted the pain has also caused increased difficulty breathing. Patient has severe pulmonary hypertension with her last Mean pulmonary artery pressure at 54 [address] Patient follows with [address] Tovar at [facility]. Patient is currently on 8 Liters oxygen at home continuously. Patient noted her prop cutter has noted she should not be intubated due to her severe pulmonary hypertension. Patient denies previous cardiac history. She has had multiple cardiac caths, however she notes this is due to her lung status. Patient notes her only abdominal surgery is total hysterectomy. She denies previous small bowel obstruction. She denies recent changes in bowel habits. She denies concerns with constipation or diarrhea. She noted her bowel movements have been darker yesterday and today. Patient denies seeing fabiana blood within in her stool. Her last bowel movement was this morning approximately 10 minutes ago in the ED. Patient denies family history of colon cancer. Her last colonoscopy was in [address] Guerrero. Findings were notable for diverticulosis, redundant colon otherwise unremarkable. no specimens were obtained. Recommend repeat in 10 years. Patient notes she had a blood clot approximately 40 years ago. She is maintained on a daily 81 mg aspirin. Patient has a history of right breast cancer in 2003. She had a partial lumpectomy with sentinel lymph node biopsy by Dr. Guerrero. Dr. Guerrero has also performed a completion thyroidectomy in 2011. Patient has a previous history of cigarette smoking for approximately 30 years. She quit smoking in . Patient notes her abdominal discomfort has slightly improved. She notes this discomfort is an ache. Labs: WBC 12.1, Hbg 13.2, Hct 42.1, plt 413. Creat. 1.1. Lactic acid 2.3 ---> 5.0. CT scan of ab/pel demonstrates a small bowel obstruction. CT scan with no official reading yet. Past Medical History Allergies aspirin [ASA] Allergy (Verified 04/11/18 01:25) Unknown Sulfa (Sulfonamide Antibiotics) Allergy (Verified 04/11/18 01:25) Unknown Surgical History: - - right breast surgery, hysterectomy, tonsillectomy, thyroidectomy, blepharoplasty, multiple cardiac caths Psychiatric History: No pertinent psych hx Lives: With Family Smoking Status: Former smoker Alcohol: Occasional Drugs: None - *Family History Maternal History Items: Heart Disease, Hypertension Review of Systems Constitutional: Reports: Anorexia HEENT: Denies: Head Aches, Sinus Congestion, Sinus Drainage Cardiovascular: Reports: Chest Pressure Respiratory: Reports: Shortness of Breath, Shortness of breath at rest Gastrointestinal: Reports: Abdominal Pain, Nausea, Melena Genitourinary: Denies: Dysuria Musculoskeletal: Denies: Joint Pain, Joint Tenderness Skin: Denies: Rash, Wounds Neurological: Denies: Numbness, Tingling, Focal weakness Psychiatric: Reports: Anxiety Hematologic/ Lymphatic: Reports: Easy Bruising, Hx of blood clot - Physical Exam General: Alert, Oriented x3, Cooperative HEENT: Atraumatic, PERRLA, EOMI, Normocephalic Neck: Supple, No JVD, Negative Carotid Bruits Lungs: Clear to auscultation, Short of Breath, Using Accessory Muscles Cardiovascular: Regular Rhythm, Tachycardic Abdomen: Hypoactive Bowel Sounds, Distended, Guarding, Tender - generalized Extremities: No edema, Capillary Refill Less than 3 Seconds Skin: No rashes, No breakdown Musculoskeletal: No Tenderness to Palpation of Joints or Extremities Neurological: Neuro grossly intact Psych/Mental Status: Appropriate, Anxious Vital Signs Temp Pulse Resp BP Pulse Ox 97.2 F L 100 18 80/57 L 97 05/17/18 03:41 05/17/18 08:10 05/17/18 08:10 05/17/18 08:10 05/17/18 08:10 Oxygen Delivery Method Room Air Laboratory Tests Past 24 Hrs 05/17/18 08:50 Lactic Acid 5.0 H* Assessment/Plan I have been consulted in conjunction with Dr. Guerrero Impression: Abdominal pain. Small bowel obstruction. Probable ischemic bowel. Plan: Discussed patient with Dr. Guerrero. Dr. Guerrero will plan to perform emergent laparoscopy. Patient is very hesitant to undergo general anesthesia, as she was told by her prop cutter that her lungs would not tolerate this type of anesthesia. Patient notes she has a large hiatal hernia, which she is not able to have surgery for due to her lung status per the patient. Dr. Lomeli was consulted. Patient has requested Dr. Lomeli speak with her prop cutter to discuss this procedure. It has been discussed with the patient and her son and the urgency in proceeding with this procedure. We will wait to proceed until we discuss with her prop cutter. Patient will either proceed with surgery or be transferred to tertiary facility. Patient is a high risk operative candidate due to her pulmonary status. Thank you for allowing us to participate in this patient's care. Code Visit Office Visits / Consults: [id number] IP Consult L4
[2018-05-17 11:19] LABS: International Normalized Ratio 1.4; Partial Thromboplast Time 33.9 Seconds (24.1-36.2); Prothrombin Time (Protime)PT. 16.8 SECONDS (11.7-14.9)
--- NOTE | 2018-05-17 11:43 | PCM.CON.CC ---
Problem List (1) Pulmonary hypertension Status: Acute (2) Hypothyroidism Status: Acute Qualifiers: Hypothyroidism type: acquired Qualified Code(s): E03.9 - Hypothyroidism, unspecified (3) GERD (gastroesophageal reflux disease) Status: Acute (4) Depression Status: Acute (5) COPD (chronic obstructive pulmonary disease) Status: Acute (6) Abdominal pain Status: Acute (7) Small bowel obstruction Status: Acute Reason for Consult Date of Consultation: 05/17/18 Reason for Consultation: Hypotension History of Present Illness: The patient is a 77 year old F, with past medical history listed below, who presented to [facility] on 05/17/2018 secondary to worsening abdominal pain. Patient had described the pain as cramping without any aggravating or relieving factors. Patient had not had any fever or change in productive cough reported. Patient had had some nausea with some dry heaves overnight. Patient stated that yesterday morning she was feeling well, but then started to have worsening umbilical pain. Pain was described as a cramping sensation. Patient did state that she had some darker bowel movements, but thought this was related to her diet. Patient has never had a history of GI bleed previously. While in the emergency room, patient was noted to be on her home 8 L/min of nasal cannula oxygen. Laboratory workup showed sinus tachycardia with a leukocytosis of 12.7. Patient's creatinine was 1.1. Initial lactic acid was 2.3. Patient was treated empirically with Zofran therapy. CT scan of the abdomen showed dilated small bowel with distal compression. Patient had transiently improved, so plans were made to transfer to the progressive care unit. Patient was placed in the intensive care unit secondary to bed availability. However, shortly after arriving, patient became hypotensive with blood pressures in the 70s over 40s. Patient was given a total of 30 cc/kg of IV fluids with some improvement of blood pressure. Shortly thereafter, patient's blood pressure started to fall. I was asked to come to the patient's room at approximately 10 AM. Patient had significant concern secondary to her advanced pulmonary hypertension about being intubated. Stressed to the patient that if ischemic bowel is present, this would be an emergent surgery and would require intubation. [facility] was contacted at the patient's request. Did discuss with Dr. Tovar, her pulmonary hypertension specialist. There was some concern about possible transfer to the [facility] preoperatively. Transfer line was contacted and Dr. Mendez was informed of patient's current situation. Dr. Mendez's suggestion was to proceed with emergent surgery here and transfer the patient to [facility] postoperatively if complications arose. After discussing thoroughly with the patient and Dr. Guerrero, patient has decided to proceed with surgery here. Patient will have an NG, OG and central line placed. Patient should have low tidal volume ventilation perioperatively. Patient has not had Tyvaso in approximately 8 hours, but saturations are holding on 6 L nasal cannula oxygen. Past Medical History Allergies aspirin [ASA] Allergy (Verified 04/11/18 01:25) Unknown Sulfa (Sulfonamide Antibiotics) Allergy (Verified 04/11/18 01:25) Unknown Home Medications: Ambulatory Orders Medication Instructions Recorded Folic Acid 1 mg PO DAILY@0800 10/29/14 Pantoprazole Sodium [Protonix] 40 mg PO DAILY 10/29/14 Sertraline HCl [Zoloft] 50 mg PO DAILY 10/29/14 Simvastatin [Zocor] 20 mg PO QHS 10/29/14 Treprostinil/Nebulizer/Accesor 1.74 mg IH Q4H 04/11/18 [Tyvaso Inhalation Starter Kit] Aspirin [Aspirin, Baby] 81 mg PO DAILY@0800 05/17/18 Hydroxyzine HCl 25 mg PO Q8H PRN PRN 05/17/18 Levothyroxine Sodium [Synthroid] 50 mcg PO SUTUWETHFRSA 05/17/18 Levothyroxine [Synthroid] 100 mcg PO MO 05/17/18 Metoprolol Succinate 12.5 mg PO DAILY 05/17/18 Multivit-Min/FA/Lycopen/Lutein 1 each PO DAILY 05/17/18 [Centrum Silver Tablet] Tiotropium [place] [Spiriva] 18 mcg IH DAILY 05/17/18 Surgical History: - - right breast surgery, hysterectomy, tonsillectomy, thyroidectomy, blepharoplasty, multiple cardiac caths Psychiatric History: No pertinent psych hx Lives: With Family Smoking Status: Former smoker Alcohol: Occasional Drugs: None - *Family History Maternal History Items: Heart Disease, Hypertension Review of Systems Comment: See HPI Patient Problems: Active and Suspected Problems Abdominal pain (Acute) Small bowel obstruction (Acute) Pulmonary hypertension (Acute) Hypothyroidism (Acute) GERD (gastroesophageal reflux disease) (Acute) Depression (Acute) COPD (chronic obstructive pulmonary disease) (Acute) Objective: All imaging was personally reviewed. Surgery was concerned for dilated small bowel with decompressed distal areas. Formal interpretation is not available for review - Physical Exam General: Alert, Oriented x3, Cooperative, - - Mild to moderate respiratory distress. HEENT: Atraumatic, PERRLA, EOMI, Normocephalic, - - No scleral icterus or injection noted Oral: Moist Mucosa, No Gingival or Mucosal Lesions/ Ulcerations, - - Fair dentition Neck: Supple, No Nodes, Trachea Midline, JVD, Right Lungs: No rhonchi, No wheeze, No rales, Diminished Cardiovascular: Normal S1, Normal S2, Murmur, No rub noted, No Gallop, Tachycardic Abdomen: Soft, Hypoactive Bowel Sounds, Distended, - - No rebound or guarding noted. Extremities: No cyanosis, Capillary Refill Less than 3 Seconds, Clubbing, Edema Skin: No rashes, No breakdown Musculoskeletal: No Tenderness to Palpation of Joints or Extremities Lymphatic: No Cervical, Supraclavicular, or Inguinal Adenopathy Neurological: Cranial nerves II-XII grossly intact, Neuro grossly intact Psych/Mental Status: Alert and oriented to time, place, person, mood and affect Vital Signs Temp Pulse Resp BP Pulse Ox 36.2 C L 100 18 80/57 L 97 05/17/18 03:41 05/17/18 08:10 05/17/18 08:10 05/17/18 08:10 05/17/18 08:10 Oxygen Delivery Method Room Air Weight: 61.3 kg Body Mass Index (BMI) 23.1 Microbiology Past 72 Hours 05/17/18 09:30 Stool Occult Blood (CARLOS) - Final Stool Occult Blood Positive Laboratory Tests 05/17/18 05/17/18 05/17/18 03:55 03:55 03:55 WBC 12.7 H RBC 4.74 Hgb 13.2 Hct 42.1 MCV 88.8 MCH 27.8 MCHC 31.4 L RDW 15.4 H RDW Differential 49.8 H Plt Count 413 MPV 11.3 Immature Gran % (Auto) 0.200 Neut % (Auto) 85.3 H Lymph % (Auto) 8.2 L [place] % (Auto) 3.5 Eos % (Auto) 2.0 Baso % (Auto) 0.8 Absolute Neuts (auto) 10.9 H Absolute Lymphs (auto) 1.04 Total Counted Not Reportable PT INR APTT Sodium 141 Potassium 3.7 Chloride 104 Carbon Dioxide 25.0 Anion Gap 12 BUN 10 Creatinine 1.10 H Estim Creat Clear Calc 37.57 Est GFR (MDRD) Af Amer 62 Est GFR (MDRD) Non-Af 51 L BUN/Creatinine Ratio 9.1 L Glucose 150 H Lactic Acid 2.3 H Calcium 9.0 Total Bilirubin 0.70 AST 29 ALT 35 Alkaline Phosphatase 103 Troponin I < 0.015 Total Protein 7.7 Albumin 3.6 Globulin 4.1 Albumin/Globulin Ratio 0.9 Lipase 99 Urine Color Urine Clarity Urine pH Ur Specific [place] Urine Protein Urine Glucose (UA) Urine Ketones Urine Occult Blood Urine Nitrite Urine Bilirubin Urine Urobilinogen Ur Leukocyte Esterase Urine RBC Urine WBC Ur Squamous Epith Cells Urine Bacteria Urine Mucus POC Glucose 05/17/18 05/17/18 05/17/18 08:50 10:55 11:35 WBC RBC Hgb Hct MCV MCH MCHC RDW RDW Differential Plt Count MPV Immature Gran % (Auto) Neut % (Auto) Lymph % (Auto) [place] % (Auto) Eos % (Auto) Baso % (Auto) Absolute Neuts (auto) Absolute Lymphs (auto) Total Counted PT 16.8 H INR 1.4 APTT 33.9 Sodium Potassium Chloride Carbon Dioxide Anion Gap BUN Creatinine Estim Creat Clear Calc Est GFR (MDRD) Af Amer Est GFR (MDRD) Non-Af BUN/Creatinine Ratio Glucose Lactic Acid 5.0 H* 5.8 H* Calcium Total Bilirubin AST ALT Alkaline Phosphatase Troponin I Total Protein Albumin Globulin Albumin/Globulin Ratio Lipase Urine Color Urine Clarity Urine pH Ur Specific [place] Urine Protein Urine Glucose (UA) Urine Ketones Urine Occult Blood Urine Nitrite Urine Bilirubin Urine Urobilinogen Ur Leukocyte Esterase Urine RBC Urine WBC Ur Squamous Epith Cells Urine Bacteria Urine Mucus POC Glucose 05/17/18 05/17/18 11:45 12:21 WBC RBC Hgb Hct MCV MCH MCHC RDW RDW Differential Plt Count MPV Immature Gran % (Auto) Neut % (Auto) Lymph % (Auto) [place] % (Auto) Eos % (Auto) Baso % (Auto) Absolute Neuts (auto) Absolute Lymphs (auto) Total Counted PT INR APTT Sodium Potassium Chloride Carbon Dioxide Anion Gap BUN Creatinine Estim Creat Clear Calc Est GFR (MDRD) Af Amer Est GFR (MDRD) Non-Af BUN/Creatinine Ratio Glucose Lactic Acid Calcium Total Bilirubin AST ALT Alkaline Phosphatase Troponin I Total Protein Albumin Globulin Albumin/Globulin Ratio Lipase Urine Color Yellow Urine Clarity Clear Urine pH 5.0 Ur Specific [place] 1.015 Urine Protein 15 H Urine Glucose (UA) Normal Urine Ketones Negative Urine Occult Blood 25 H Urine Nitrite Negative Urine Bilirubin Negative Urine Urobilinogen Normal Ur Leukocyte Esterase 25 H Urine RBC 0-5 SEEN Urine WBC 0 SEEN Ur Squamous Epith Cells 0-5 SEEN Urine Bacteria 0 SEEN Urine Mucus 0 SEEN POC Glucose 105 Assessment/Plan Active and Suspected Problems Abdominal pain (Acute) Small bowel obstruction (Acute) Pulmonary hypertension (Acute) Hypothyroidism (Acute) GERD (gastroesophageal reflux disease) (Acute) Depression (Acute) COPD (chronic obstructive pulmonary disease) (Acute) Patient had Shah catheter placed without difficulty. Central line had been placed with no reported difficulty. However, before chest x-ray was obtained, an attempt at an NG was performed by nursing. Patient started to have significant coughing and hoarseness. NG was withdrawn, but patient became cyanotic. Patient was immediately assessed by myself and found to have no pulse. CPR was initiated. Patient was intubated with a 7.5 endotracheal tube on the second attempt. Positive color change and bilateral breath sounds were noted. Patient had received 2 A of epinephrine and a bicarbonate during the code per my recollection. Please see nursing documentation for further information. Patient was down for approximately 5 minutes until spontaneous rhythm was noted. Patient was placed on a ventilator at 100% FiO2 and 12 of PEEP. Low tidal volumes were used. Family was updated on patient's current condition. Family stated that they do not want further aggressive measures. Patient has remained on the ventilator with the family at the bedside. Patient's blood pressure has come down, but patient remains in normal sinus rhythm. Family is being contacted at this time. Anticipate palliative measures moving forward. Surgery was canceled. I have been in the patient's room since approximately 10 AM discussing patient's pulmonary hypertension, need for surgical intervention, running CODE BLUE and discussing with family about goals of therapy. At 1:15 PM, patient's family approached staff asking for comfort measures. Patient will have a palliative extubation. Morphine and Ativan have been ordered to control symptoms. Patient was premedicated with 4 mg of morphine and 2 mg of Ativan. (Critical care time 205 minutes) Addendum 2:12 PM: Patient was transitioned to comfort care measures at 1:15 PM. I was called to reevaluate the patient secondary to asystole on the monitor. Patient was personally examined by myself. Patient did not have any spontaneous respiratory rate or heart sounds auscultated. No pulses were palpable. Patient was pronounced by myself at 2:10 PM. Patient passed peacefully with her son and at the bedside. Cause of would be probable ischemic bowel. Secondary diagnoses would include severe pulmonary hypertension and septic shock. Nursing will discuss with family about chcf and autopsy decisions. [facility] has not been called to my knowledge. Code Visit Procedures: 08180 Critial Care Addl 30 Min - ?5. Over 205 minutes of critical care time total. 9xxxx: [id number] Critical care first hour
--- NOTE | 2018-05-17 11:51 | CON.PCM_ITS ---
Problem List (1) Pulmonary hypertension Status: Acute (2) Hypothyroidism Status: Acute Qualifiers: Hypothyroidism type: acquired Qualified Code(s): E03.9 - Hypothyroidism, unspecified (3) GERD (gastroesophageal reflux disease) Status: Acute (4) Depression Status: Acute (5) COPD (chronic obstructive pulmonary disease) Status: Acute (6) Abdominal pain Status: Acute (7) Small bowel obstruction Status: Acute Reason for Consult Date of Consultation: 05/17/18 Reason for Consultation: Hypotension History of Present Illness: The patient is a 77 year old F, with past medical history listed below, who presented to [facility] on 05/17/2018 secondary to worsening abdominal pain. Patient had described the pain as cramping without any aggravating or relieving factors. Patient had not had any fever or change in productive cough reported. Patient had had some nausea with some dry heaves overnight. Patient stated that yesterday morning she was feeling well, but then started to have worsening umbilical pain. Pain was described as a cramping sensation. Patient did state that she had some darker bowel movements , but thought this was related to her diet. Patient has never had a history of GI bleed previously. While in the emergency room, patient was noted to be on her home 8 L/min of nasal cannula oxygen. Laboratory workup showed sinus tachycardia with a leukocytosis of 12.7. Patient's creatinine was 1.1. Initial lactic acid was 2.3. Patient was treated empirically with Zofran therapy. CT scan of the abdomen showed dilated small bowel with distal compression. Patient had transiently improved, so plans were made to transfer to the progressive care unit. Patient was placed in the intensive care unit secondary to bed availability. However, shortly after arriving, patient became hypotensive with blood pressures in the 70s over 40s. Patient was given a total of 30 cc/kg of IV fluids with some improvement of blood pressure. Shortly thereafter, patient's blood pressure started to fall. I was asked to come to the patient's room at approximately 10 AM. Patient had significant concern secondary to her advanced pulmonary hypertension about being intubated. Stressed to the patient that if ischemic bowel is present, this would be an emergent surgery and would require intubation. [facility] was contacted at the patient's request. Did discuss with Dr. Tovar, her pulmonary hypertension specialist. There was some concern about possible transfer to the [facility] preoperatively. Transfer line was contacted and Dr. Mendez was informed of patient's current situation. Dr. Mendez's suggestion was to proceed with emergent surgery here and transfer the patient to [facility] postoperatively if complications arose. After discussing thoroughly with the patient and Dr. Guerreor, patient has decided to proceed with surgery here. Patient will have an NG, OG and central line placed. Patient should have low tidal volume ventilation perioperatively. Patient has not had Tyvaso in approximately 8 hours, but saturations are holding on 6 L nasal cannula oxygen. Past Medical History Allergies aspirin [ASA] Allergy (Verified 04/11/18 01:25) Unknown Sulfa (Sulfonamide Antibiotics) Allergy (Verified 04/11/18 01:25) Unknown Home Medications: Ambulatory Orders Medication Instructions Recorded Folic Acid 1 mg PO DAILY@0800 10/29/14 Pantoprazole Sodium [Protonix] 40 mg PO DAILY 10/29/14 Sertraline HCl [Zoloft] 50 mg PO DAILY 10/29/14 Simvastatin [Zocor] 20 mg PO QHS 10/29/14 Treprostinil/Nebulizer/Accesor 1.74 mg IH Q4H 04/11/18 [Tyvaso Inhalation Starter Kit] Aspirin [Aspirin, Baby] 81 mg PO DAILY@0800 05/17/18 Hydroxyzine HCl 25 mg PO Q8H PRN PRN 05/17/18 Levothyroxine Sodium [Synthroid] 50 mcg PO SUTUWETHFRSA 05/17/18 Levothyroxine [Synthroid] 100 mcg PO MO 05/17/18 Metoprolol Succinate 12.5 mg PO DAILY 05/17/18 Multivit-Min/FA/Lycopen/Lutein 1 each PO DAILY 05/17/18 [Centrum Silver Tablet] Tiotropium [place] [Spiriva] 18 mcg IH DAILY 05/17/18 Surgical History: - - right breast surgery, hysterectomy, tonsillectomy, thyroidectomy, blepharoplasty, multiple cardiac caths Psychiatric History: No pertinent psych hx Lives: With Family Smoking Status: Former smoker Alcohol: Occasional Drugs: None - *Family History Maternal History Items: Heart Disease, Hypertension Review of Systems Comment: See HPI Patient Problems: Active and Suspected Problems Abdominal pain (Acute) Small bowel obstruction (Acute) Pulmonary hypertension (Acute) Hypothyroidism (Acute) GERD (gastroesophageal reflux disease) (Acute) Depression (Acute) COPD (chronic obstructive pulmonary disease) (Acute) Objective: All imaging was personally reviewed. Surgery was concerned for dilated small bowel with decompressed distal areas. Formal interpretation is not available for review - Physical Exam General: Alert, Oriented x3, Cooperative, - - Mild to moderate respiratory distress. HEENT: Atraumatic, PERRLA, EOMI, Normocephalic, - - No scleral icterus or injection noted Oral: Moist Mucosa, No Gingival or Mucosal Lesions/ Ulcerations, - - Fair dentition Neck: Supple, No Nodes, Trachea Midline, JVD, Right Lungs: No rhonchi, No wheeze, No rales, Diminished Cardiovascular: Normal S1, Normal S2, Murmur, No rub noted, No Gallop, Tachycardic Abdomen: Soft, Hypoactive Bowel Sounds, Distended, - - No rebound or guarding noted. Extremities: No cyanosis, Capillary Refill Less than 3 Seconds, Clubbing, Edema Skin: No rashes, No breakdown Musculoskeletal: No Tenderness to Palpation of Joints or Extremities Lymphatic: No Cervical, Supraclavicular, or Inguinal Adenopathy Neurological: Cranial nerves II-XII grossly intact, Neuro grossly intact Psych/Mental Status: Alert and oriented to time, place, person, mood and affect Vital Signs Temp Pulse Resp BP Pulse Ox 36.2 C L 100 18 80/57 L 97 05/17/18 03:41 05/17/18 08:10 05/17/18 08:10 05/17/18 08:10 05/17/18 08:10 Oxygen Delivery Method Room Air Weight: 61.3 kg Body Mass Index (BMI) 23.1 Microbiology Past 72 Hours 05/17/18 09:30 Stool Occult Blood (CARLOS) - Final Stool Occult Blood Positive Laboratory Tests 05/17/18 05/17/18 05/17/18 03:55 03:55 03:55 WBC 12.7 H RBC 4.74 Hgb 13.2 Hct 42.1 MCV 88.8 MCH 27.8 MCHC 31.4 L RDW 15.4 H RDW Differential 49.8 H Plt Count 413 MPV 11.3 Immature Gran % (Auto) 0.200 Neut % (Auto) 85.3 H Lymph % (Auto) 8.2 L Thayer % (Auto) 3.5 Eos % (Auto) 2.0 Baso % (Auto) 0.8 Absolute Neuts (auto) 10.9 H Absolute Lymphs (auto) 1.04 Total Counted Not Reportable PT INR APTT Sodium 141 Potassium 3.7 Chloride 104 Carbon Dioxide 25.0 Anion Gap 12 BUN 10 Creatinine 1.10 H Estim Creat Clear Calc 37.57 Est GFR (MDRD) Af Amer 62 Est GFR (MDRD) Non-Af 51 L BUN/Creatinine Ratio 9.1 L Glucose 150 H Lactic Acid 2.3 H Calcium 9.0 Total Bilirubin 0.70 AST 29 ALT 35 Alkaline Phosphatase 103 Troponin I < 0.015 Total Protein 7.7 Albumin 3.6 Globulin 4.1 Albumin/Globulin Ratio 0.9 Lipase 99 Urine Color Urine Clarity Urine pH Ur Specific [place] Urine Protein Urine Glucose (UA) Urine Ketones Urine Occult Blood Urine Nitrite Urine Bilirubin Urine Urobilinogen Ur Leukocyte Esterase Urine RBC Urine WBC Ur Squamous Epith Cells Urine Bacteria Urine Mucus POC Glucose 05/17/18 05/17/18 05/17/18 08:50 10:55 11:35 WBC RBC Hgb Hct MCV MCH MCHC RDW RDW Differential Plt Count MPV Immature Gran % (Auto) Neut % (Auto) Lymph % (Auto) Thayer % (Auto) Eos % (Auto) Baso % (Auto) Absolute Neuts (auto) Absolute Lymphs (auto) Total Counted PT 16.8 H INR 1.4 APTT 33.9 Sodium Potassium Chloride Carbon Dioxide Anion Gap BUN Creatinine Estim Creat Clear Calc Est GFR (MDRD) Af Amer Est GFR (MDRD) Non-Af BUN/Creatinine Ratio Glucose Lactic Acid 5.0 H* 5.8 H* Calcium Total Bilirubin AST ALT Alkaline Phosphatase Troponin I Total Protein Albumin Globulin Albumin/Globulin Ratio Lipase Urine Color Urine Clarity Urine pH Ur Specific [place] Urine Protein Urine Glucose (UA) Urine Ketones Urine Occult Blood Urine Nitrite Urine Bilirubin Urine Urobilinogen Ur Leukocyte Esterase Urine RBC Urine WBC Ur Squamous Epith Cells Urine Bacteria Urine Mucus POC Glucose 05/17/18 05/17/18 11:45 12:21 WBC RBC Hgb Hct MCV MCH MCHC RDW RDW Differential Plt Count MPV Immature Gran % (Auto) Neut % (Auto) Lymph % (Auto) [place] % (Auto) Eos % (Auto) Baso % (Auto) Absolute Neuts (auto) Absolute Lymphs (auto) Total Counted PT INR APTT Sodium Potassium Chloride Carbon Dioxide Anion Gap BUN Creatinine Estim Creat Clear Calc Est GFR (MDRD) Af Amer Est GFR (MDRD) Non-Af BUN/Creatinine Ratio Glucose Lactic Acid Calcium Total Bilirubin AST ALT Alkaline Phosphatase Troponin I Total Protein Albumin Globulin Albumin/Globulin Ratio Lipase Urine Color Yellow Urine Clarity Clear Urine pH 5.0 Ur Specific [place] 1.015 Urine Protein 15 H Urine Glucose (UA) Normal Urine Ketones Negative Urine Occult Blood 25 H Urine Nitrite Negative Urine Bilirubin Negative Urine Urobilinogen Normal Ur Leukocyte Esterase 25 H Urine RBC 0-5 SEEN Urine WBC 0 SEEN Ur Squamous Epith Cells 0-5 SEEN Urine Bacteria 0 SEEN Urine Mucus 0 SEEN POC Glucose 105 Assessment/Plan Active and Suspected Problems Abdominal pain (Acute) Small bowel obstruction (Acute) Pulmonary hypertension (Acute) Hypothyroidism (Acute) GERD (gastroesophageal reflux disease) (Acute) Depression (Acute) COPD (chronic obstructive pulmonary disease) (Acute) Patient had Shah catheter placed without difficulty. Central line had been placed with no reported difficulty. However, before chest x-ray was obtained, an attempt at an NG was performed by nursing. Patient started to have significant coughing and hoarseness. NG was withdrawn, but patient became cyanotic. Patient was immediately assessed by myself and found to have no pulse. CPR was initiated. Patient was intubated with a 7.5 endotracheal tube on the second attempt. Positive color change and bilateral breath sounds were noted. Patient had received 2 A of epinephrine and a bicarbonate during the code per my recollection. Please see nursing documentation for further information. Patient was down for approximately 5 minutes until spontaneous rhythm was noted. Patient was placed on a ventilator at 100% FiO2 and 12 of PEEP. Low tidal volumes were used. Family was updated on patient's current condition. Family stated that they do not want further aggressive measures. Patient has remained on the ventilator with the family at the bedside. Patient' s blood pressure has come down, but patient remains in normal sinus rhythm. Family is being contacted at this time. Anticipate palliative measures moving forward. Surgery was canceled. I have been in the patient's room since approximately 10 AM discussing patient' s pulmonary hypertension, need for surgical intervention, running CODE BLUE and discussing with family about goals of therapy. At 1:15 PM, patient's family approached staff asking for comfort measures. Patient will have a palliative extubation. Morphine and Ativan have been ordered to control symptoms. Patient was premedicated with 4 mg of morphine and 2 mg of Ativan. (Critical care time 205 minutes) Addendum 2:12 PM: Patient was transitioned to comfort care measures at 1:15 PM. I was called to reevaluate the patient secondary to asystole on the monitor. Patient was personally examined by myself. Patient did not have any spontaneous respiratory rate or heart sounds auscultated. No pulses were palpable. Patient was pronounced by myself at 2:10 PM. Patient passed peacefully with her son and at the bedside. Cause of would be probable ischemic bowel. Secondary diagnoses would include severe pulmonary hypertension and septic shock. Nursing will discuss with family about detention and autopsy decisions. [facility] has not been called to my knowledge. Code Visit Procedures: 85020 Critial Care Addl 30 Min - ?5. Over 205 minutes of critical care time total. [id number]: [id number] Critical care first hour
[2018-05-17 11:54] LABS: Bacteria 0 SEEN /hpf (None Seen); Mucous, Urine 0 SEEN /hpf (<or=2+); White Blood Cells 0 SEEN /hpf (0-5)
[2018-05-17 11:56] LABS: Color, Urine Yellow (Yellow); Glucose, Dipstick Normal (Normal); Ketone-Dipstick Negative (Negative); Leukocyte Esterase-Dipstick 25 /ul (Negative); Nitrite-Dipstick Negative (Negative); Occult Blood-Urine 25 /ul (Negative); Protein-Dipstick 15 mg/dl (Negative); Specific Gravity, Urine 1.015 (1.002-1.030); Urine Bilirubin Dipstick Negative (Negative); Urine Clarity Clear (Clear); Urine Urobilinogen Normal (Normal)
--- NOTE | 2018-05-17 11:56 | RAD_ITS ---
STUDY: X-RAY CHEST REASON FOR EXAM: Female, 77 years old. Small bowel obstruction. Central line insertion. Check position. TECHNIQUE: Single AP supine portable chest. COMPARISON: 05/17/2018 at 0431 hours. FINDINGS: Since last chest study, endotracheal tube is in place, inferior tip is slightly right of midline and near the inferior niru approximate 1.4 cm distance with this projection. Right AJ central venous catheter noted, inferior tip overlies SVC near the atriocaval junction. Lungs appear fairly hyperexpanded with mild elevation right diaphragm seen. Biapical hyperexpansion/hyperlucency changes indicate COPD. Increased groundglass and interstitial markings are seen throughout the left greater right perihilar and bibasal regions consistent with atelectasis/scarring/fibrosis, pleural fluid, pneumonia or combination. Low probability neoplasm not entirely excluded. No large gross pneumothorax suggested. Tiny surgical clips project over the right lung base laterally. Mildly enlarged heart. Stable mediastinum and bradly given technical and positional changes. Stable visualized pulmonary arteries. Stable visualized severely calcified aortic knob. No acute osseous abdomen identified. There is no demonstrated abnormality of the visualized soft tissue structures of the upper abdomen. No subdiaphragmatic free air seen grossly. Moderate gaseous distention noted incompletely seen stomach air bubble. IMPRESSION: Low-lying inferior endotracheal tube tip has described, patient may benefit from pulling endotracheal tube back approximately 3 cm. Well positioned appearing right IJ central venous catheter placement. Severe COPD with increased pulmonary vasculature suggesting congestive changes. Clinical correlation for CHF/fluid overload recommended. Moderate gastric gaseous distention, incompletely seen. Clinical correlation recommended. Electronically Signed: Cory Osborne, at 13:36 EDT Tel , Service support , RAD/CXR for Line Placement
[2018-05-17 12:05] LABS: Red Blood Cells-Urine 0-5 SEEN /hpf (0-5); Squamous Epithelial Cells - UA 0-5 SEEN /hpf (5-10)
[2018-05-17 12:05] LABS: Lactic Acid 5.8 mmol/L (0.4-2.0)
--- NOTE | 2018-05-17 12:08 | NURSING ---
Following insertion of R IJ central venous catheter, this RN was attempting to place NG tube. Pt was coughing and became uncooperative with NG insertion, insertion was stopped and tube withdrawn. Afterwards it was observed that patient was not breathing and her face was blue, did not respond to noxious stimuli. OR staff that was present at the time and began ventilating with Ambu-bag, pulse check revealed no pulse, code blue was called and compressions started. See code blue record for further documentation.
--- NOTE | 2018-05-17 12:13 | PCM.OP.BLANK ---
Operative Report Date of Procedure: 05/17/18 - central line insertion Central line placement procedure note Indication: IV access/hemodynamic instability/vasoactive medications Procedure: A time-out was completed to verify correct patient, indication, medication allergies, procedure, coagulation studies, informed consent signed, and equipment needed. The patient was placed in the supine position for a central line placement to the rt IJ vein. The patients rt neck was prepped using chlorhexidine and a full body sterile drape was applied. 1% lidocaine was used to anesthetize the surrounding skin. A 7fr 16 cm blue guard triple lumen catheter introduced into the internal jugular vein using the modified Seldinger technique with the assistance of ultrasound. The catheter was threaded smoothly over the guidewire, the guidewire was removed easily, nonpulsatile blood returned. All ports were aspirated of air and flushed with sterile saline. The catheter was sutured in place and covered with an occlusive dressing impregnated with chlorhexidine. Post-procedure: The patient tolerated the procedure well, and was conversant post procedure without signs of distress. Vital signs remained stable. EBL 5 ml. No complications. Chest X Ray ordered to confirm tip placement and the absence of pneumothorax. Code Visit Procedures: [id number] Insert Non-tunnel CV Cath
[2018-05-17 12:26] LABS: Bedside Glucose 105 mg/dL (70-110)
[2018-05-17] MEDS: Midazolam 2 MG/2 ML Syringe IV (12:35)
--- NOTE | 2018-05-17 12:35 | RAD_ITS ---
STUDY: X-RAY CHEST REASON FOR EXAM: Female, 77 years old. Shortness of breath, endotracheal tube adjustment. TECHNIQUE: Portable AP supine chest. COMPARISON: 05/17/2018 chest x-ray at 1245 hours FINDINGS: The endotracheal tube tip lies approximately 3.8 cm cephalad of the niru. Well positioned. Right internal jugular small bore central venous catheter tip in distal SVC, stable. Patchy airspace opacities bilaterally mid to lower lungs, superimposed upon suspected underlying COPD. Stable. Large sliding hiatal hernia. There is no significant cardiomegaly. Normal mediastinal silhouette, bradly and pleural margins. No effusion or pneumothorax. No acute osseous or upper abdominal process. RAD/Chest 1 View (Portable) IMPRESSION: The endotracheal tube is now well positioned. The chest is stable. Electronically Signed: Mayco Doshi, at 14:39 EDT Tel , Service support ,
--- NOTE | 2018-05-17 12:45 | NURSING ---
Dr Lomeli speaking with family, order received not to advance care at this time following poncho lee, family wishes to make patient DNRCCO.
--- NOTE | 2018-05-17 12:58 | PCM.PN.BLA ---
Progress Note Respiratory/cardiac arrest with CPR and rib fxs with NGT attempt Pt now intubated Very poor operative candidate at this time Recommend palliative care or tertiary referral. I do not feel comfortable with any abdominal operative attempts at this time
--- NOTE | 2018-05-17 13:15 | NURSING ---
Family informed this RN that they wanted the ETT to be discontinued. Respiratory therapy, Dr Lomeli, and Dr Link notified. Orders received from Dr Lomeli. Pt was subsequently extubated at [address] Lomeli and this RN at the bedside, family waiting on other side of the curtain.
--- NOTE | 2018-05-17 13:18 | CASEMGMT ---
SW and finish repair worker were available for support for patient's son and after a code blue was called. They indicated they were fine and needed time to process the news. SW and finish repair worker let them know we were available if needed. Estefania CASTELLON ACCOUNTING/FINANCE TUTOR
[2018-05-17] MEDS: LORazepam 2 MG/ML Syringe IV (13:20)
[2018-05-17] MEDS: morphine 10 MG/ML Syringe IV (13:24)
--- NOTE | 2018-05-17 13:32 | CHAPLAIN ---
Type of Pastoral Visit ___ Initial Visit ___ Follow-up Visit ___ On-call Visit ___ General Patient Visit ___ Spiritual Assessment ___ Family Conference ___ Bereavement ___ Rapid Response _x__ Code Blue ___ Other (describe below) Pastoral Care Referral From ___ Patient ___ Family ___ Nurse ___ Physician ___ Network Control Operators Supervisor ___ Clinic Clerk _x__ Other (describe below) Sacrament/Intervention ___ Active listening ___ Anointing ___ Rastafarian ___ Bereavement ___ Communion ___ Josy exploration ___ ___ Life review ___ Prayer ___ Reconciliation ___ Sacrament of Sick _x__ Supportive presence ___ Wedding ___ Other (describe below) Pastoral Comments introduced self to spouse and son of patient; family declared that patient was already , even though that was not the case, and said we are just trying to process this ourselves; family declined support later as well as this garment steamer offered it after doctor had explained options of care and treatment to family; stayed in ICU unit for some time just to be available to staff or family; no further care requested
--- NOTE | 2018-05-17 14:25 | PCM.DEATH ---
Preliminary Cause of cardiac arrest due to ischemic bowel Date of Admission: 05/17/18 Date of : 05/17/18 - Principle Diagnosis ischemic bowel Problem List: Active and Suspected Problems Abdominal pain (Acute) Small bowel obstruction (Acute) Pulmonary hypertension (Acute) Hypothyroidism (Acute) GERD (gastroesophageal reflux disease) (Acute) Depression (Acute) COPD (chronic obstructive pulmonary disease) (Acute) Hospital Course Patient is a 77-year-old female with a past medical history of hypothyroidism, COPD, chronic hypoxic respiratory failure due to pulmonary fibrosis, on 8 L of oxygen at home and depression. She was admitted via the ED on 05/27/2018 with a complaint of worsening abdominal pain. Pain had started the night prior to admission and was cramping in nature and generalized with no aggravating or relieving factors. She had had nausea and vomiting prior to coming in but these had resolved at time of review. She therefore decided to come into the ED. She never had a history of GI bleed. In the emergency room, patient was saturating well on 8 L of her nasal cannula oxygen at time of review. Labs showed leukocytosis of 12.7 her creatinine was 1.1. Initial lactic acid was 2.3. She was started on IV Zofran and IV fluids. At time of review, patient was noted to be hypotensive and lactic acid subsequently trended up to 5. The abdomen done showed dilated small bowel with distal decompression concerning for small bowel obstruction. At time of review in the ED patient looks stable, abdomen was soft on examination and decision was made to admit patient to PCU. However patient was admitted to ICU on account of no beds been in PCU. On arrival in the ICU, patient was noted to be hypotensive with blood pressure in the 70s over 40s. Food Services Manager was consulted and general surgeon was also consulted. General surgery had advocated passing NG tube as patient was likely not going to be a surgical candidate in light of her comorbidities. In the ICU as a blood pressure started falling, patient was resuscitated with a total of 30 cc/kg of IV fluids and blood pressure improved slightly. Blood pressure started to fall again. Patient was counseled about being intubated on account of her advanced pulmonary hypertension and pulmonary fibrosis. Diagnosis of ischemic bowel was made and patient had discussion with general surgeon and car painter with her family at her bedside and she was counseled that if it was ischemic bowel that was present, this would be an emergent surgery that would require intubation. Food Services Manager and general surgeon contacted [facility] based on patient's request as that was when she had her primary follow-up and he spoke with her pulmonary hypertension specialist. There were concerns about transfer of patients [facility] preoperatively and decision was made that emergent surgery would be done in [facility] with transferred to [facility] postoperatively for complications approach. Patient had a central line placed and was to have an OG and NG tube also placed. During the passage of the NG tube, patient turned blue and a CODE BLUE was called. Resuscitation appear ACLS protocol was started and she received bicarbonate 2 A of epinephrine during resuscitation. Patient also went into asystole and there was prompt return of spontaneous circulation after about 5 minutes. Patient was intubated and placed on a ventilator. Family was updated about patient's condition and family stated that they did not want any further aggressive measures and to withdraw care. Surgery was effectively canceled. Patient was palliatively extubated at 1:15 PM and then transition to comfort care measures at that time. Patient went into asystole and pronounced by car painter at 2:10 PM and son were at her bedside. Cause of was thought to be likely due to ischemic bowel and secondary diagnoses included possible severe pulmonary hypertension and septic shock. Code Visit Inpatient E&M: 70751 Disch Hosp
[2018-05-17 15:40] LABS: Reflex Lactate? Y
--- NOTE | 2018-05-18 09:58 | CASEMGMT ---
Request by Esperanza to assist with finding [employer] company as portable tank, regulator were left @ hospital-Inventory Representative can be used to return tank to DME company. MIRELLA DOVER called to [facility], pt is client of theirs and if brought to [facility], they will process it (pt has ). Amna, Sec/ICU notified that certification officer can take tank to [facility]. Cristopher TAMAYON RN ACM
== END 2018-05-17 14:09 | DRG 393 ==
LOC: ED 04:51 → ICU 08:25
PROVIDERS: Internal Medicine Critical Care Medicine; Surgery; Admitting Provider Student in an Organized Health Care Education/Training Program; Emergency Provider Emergency Medicine; Family Provider Internal Medicine; PCP Internal Medicine; Visit Provider Student in an Organized Health Care Education/Training Program
DX: K55.9 Vascular disorder of intestine, unspecified (principal); A41.9 Sepsis, unspecified organism; R65.21 Severe sepsis with septic shock; J96.11 Chronic respiratory failure with hypoxia; K56.609 Unspecified intestinal obstruction, unspecified as to partial versus complete obstruction; Z99.81 Dependence on supplemental oxygen; Z87.891 Personal history of nicotine dependence; E03.9 Hypothyroidism, unspecified; I27.20 Pulmonary hypertension, unspecified; I46.9 Cardiac arrest, cause unspecified; K21.9 Gastro-esophageal reflux disease without esophagitis; J44.9 Chronic obstructive pulmonary disease, unspecified; F32.9 Major depressive disorder, single episode, unspecified; J84.10 Pulmonary fibrosis, unspecified
CPT/HCPCS: 31500; 71045; 74177; 80053; 81001; 82274; 82962; 83605; 83690; 84484; 85025; 85610; 85730; 92950; 93005; 94002; 94640; 99285; J7030; J7040; Q9967; A4216; C1751; J2405